=== PATIENT | female | born 1990 | race Caucasian/White ===

== ENCOUNTER 2023-12-18 22:50 | Emergency (ER) | payer BC, SELFPAY ==
[2023-12-18 23:00] VITALS: BP 130/80
--- NOTE | 2023-12-18 23:15 | ED.GENMED ---
History of Present Illness
General
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
Source: patient
Exam Limitations: none
Time Seen by Provider: 12/18/23 23:08
History of Present Illness
History of Present Illness:
This is a 33 year old female that comes in with c/o urinary symptoms. State that she feels like she had a UTI. States that at first she felt like she was retaining and had urgency. Then she started with blood in her urine and burning about 6:30pm.
States that she called her PCP thinking they could call something in but they did not do this. States that she then decided to just come here if she was going to be up all night. States that her abd does hurt. Denies any fever, chills, chest pain,
SOB, nausea, vomiting, diarrhea, headache, dizziness.
Past History
Past History
ED Past Medical History: Other (Migraines)
ED Past Surgical History:
Social History
Tobacco: Former smoker
Alcohol: Occasional
Personal: Single
Living: with family
Review of Systems
Review of Systems
All Other Systems: ROS reviewed and negative except as documented in HPI and ROS
Constitutional: Reports no symptoms; Denies fever or chills
EENT: Reports no symptoms
Respiratory: Reports no symptoms; Denies cough or trouble breathing
Cardiac: Reports no symptoms; Denies chest pain
ABD/GI: Reports abdominal pain; Denies nausea, vomiting or diarrhea
: Reports dysuria and urgency; Denies frequency
Musculoskeletal: Reports no symptoms
Skin: Reports no symptoms
Neurological: Reports no symptoms; Denies dizzy or headache
Psychiatric: Reports no symptoms
Phy Exam
General Physical Exam
General Presentation: well appearing and no apparent distress
General age: appears stated age
General Skin: warm and dry
General Habitus: normal
General Mental: alert
General Hydration: appears well hydrated
ENT Exam
ENT Exam: TM's normal, pharynx normal and neck supple
Eye Exam
Eye Exam: EOMI
Cardiovascular Exam
Cardiovascular Exam: regular rate/rhythm, no edema, no murmur and normal peripheral pulses
Pulmonary Exam
Pulmonary Exam: lungs clear, no respiratory distress, no rales, chest non tender, no crackles, no rhonchi, no wheezing and no cough
Gastrointestinal Exam
Gastrointestinal Exam: normal bowel sounds, non tender, soft, no organomegaly, no pulsatile mass and non distended
Musculoskeletal Exam
Musculoskeletal Exam: full ROM and no edema
Skin Exam
Skin Exam: normal color, warm/dry, no rash and no petechia
Psychiatric Exam
Psychiatric Exam: normal mood/affect
Course
Orders/Labs/Results
Orders:
Orders
12/18/23 23:05
Test Result ONCE
12/18/23 23:23
HCG, Urine Qualitative Screen Urgent
Date Specimen was Collected: 12/18/23
Time Specimen was Collected: 23:05
Urinalysis Reflex To Culture Urgent
Date Specimen was Collected: 12/18/23
Time Specimen was Collected: 23:05
Urine Microscopic Reflex Cult Urgent
Urine Culture Urgent
NATHALY Source: U
Specimen Description:
Date Specimen was Collected: 12/18/23
Time Specimen was Collected: 23:05
12/19/23 00:22
Sulfamethox./Trimethoprim Ds [Bactrim Ds 800 mg/160 mg] 1 tablet PO NOW STA
Abnormal Lab Results
12/18/23
23:23
Ur Occult Blood Reflex 4+ A
(Negative)
Leukocyte Esterase Rfl 2+ A
(Negative)
Urine RBC >100 A /HPF
(0-2)
Urine WBC (Reflex) >100 A /HPF
(0-5)
Urine Bacteria (Reflex) Moderate A
(Negative)
Urine Albumin (Reflex) 1+ A
(Neg - Trace)
Vital Signs
Initial and Last Documented VS:
Initial Vital Signs
Temp Pulse Resp BP Pulse Ox
98.1 F 79 16 130/80 99
12/18/23 23:00 12/18/23 23:00 12/18/23 23:00 12/18/23 23:00 12/18/23 23:00
Last Documented Vital Signs
Temp Pulse Resp BP Pulse Ox
98.1 F 79 16 130/80 99
12/18/23 23:00 12/18/23 23:00 12/18/23 23:00 12/18/23 23:00 12/18/23 23:00
MDM/Problems Addressed
Differential Diagnosis Includes:
Urinary tract infection.
MDM/Problems Addressed:
This is a 33 year old female that comes in with c/o urinary symptoms. States that at first she felt she was retaining and then she started with urinary burning and blood in her urine. States that she felt if she was going to be up all night she
would just come here.
Will get urine and bladder scan after voiding to check for any residual.
Back into see patient. Explained that she does have a UTI. Will start patient on antibiotics at this time and also give Pyridium to help with spasm. Will have patient increase her water intake to 8-8oz glasses daily. Return with any concerns.
Chronic conditions affecting care:
NA
Acute Exacerbation and/or Progression of Chronic Illness:
NA
*Pulse Oximetry
Patient hypoxic: no
*EKG
Interpreted by ED Provider?: NA
Rate: EKG- N/A
*Economic Specialist Interpretation
Rate: Economic Specialist- N/A
*Critical Care Note
Total Time (30-74mins, 75-104mins- exclusive of procedures): Not Applicable
ED Attending Note
-
Portions of this chart may have been created with voice recognition software.� Occasional wrong word or��sound alike� substitutions may have occurred due to the inherent limitations of voice recognition software.
Discharge Plan
Departure
Patient Disposition: Home (Routine Discharge)
Date of Disposition: 12/19/23
Time of Disposition: 00:24
Patient with high blood pressure during this ER visit?: Yes
Condition: Good
Covid-19: Not Applicable
Discharge Problem:
Urinary tract infection
Instructions: Urinary Tract Infection, Adult (DC), BLOOD PRESSURE
Prescriptions:
New
sulfamethoxazole-trimethoprim [Bactrim DS] 800-160 mg tablet
1 tab PO BID Qty: 13 0RF
No Action
Vitamin
1 tab PO DAILY
Referrals:
Michaela Nichols PA [Family Provider] - Call in 1-3 days for appt
Activity Restrictions/Additional Instructions:
As discussed, you do have a urinary tract infection. You have been given your first dose of antibiotic here. You have also been given Pyridium to help with the spasm. This will turn your urine orange. Please increase your water intake to 8-8oz
glasses daily. Follow up with the family doctor for recheck after you have completed the antibiotics. IF YOU HAVE FEVER, OR YOU HAVE ANY OTHER CONCERNS PLEASE RETURN TO THE EMERGENCY ROOM.
Interventions
Interventions:
*Risk Screen - Suicide Last Done: 12/18/23 23:00
*General Assessment Last Done: 12/19/23 00:20
*Neglect/Abuse Screening Last Done: 12/18/23 23:00
*ED COVID-19 Vaccine History Last Done: 12/18/23 23:00
ED-Female Genitourinary Assessment Last Done: 12/19/23 00:19
Discharge Date and Time
Print Language: MALAYSIAN
[2023-12-18 23:30] LABS: Urine Albumin 1+ (Neg - Trace); Urine Bilirubin Negative (Negative); Urine Character Slightly Cloudy (Clear); Urine Color Yellow; Urine Glucose Negative (Negative); Urine Ketone Negative (Negative); Urine Leukocyte 2+ (Negative); Urine Nitrite Negative (Negative); Urine Occult Blood 4+ (Negative); Urine Urobilinogen Negative (Neg - 1+)
[2023-12-18 23:34] LABS: HCG, Urine Qualitative Screen Negative
[2023-12-19 00:20] LABS: Urine Red Blood Cell >100 /HPF (0-2); Urine Squamous Cell >30 /LPF (Few); Urine White Cell >100 /HPF (0-5)
[2023-12-19 00:21] LABS: Urine Bacteria Moderate (Negative)
[2023-12-19] MEDS: Pyridium 200 MG PO (00:48)
[2023-12-19] MEDS: BACTRIM DS 800 MG/160 MG 1 TABLET PO (00:48)
== END 2023-12-19 00:48 | disposition home or self-care (01) ==
LOC: EMR 22:50
PROVIDERS: EMERGENCY PHYSICIAN Emergency Medicine; FAMILY PHYSICIAN Physician Assistant
DX: N39.0 Urinary tract infection, site not specified (principal); Z87.891 Personal history of nicotine dependence
CPT/HCPCS: 99283; 81003; 81015; 81025; 87077; 87086

== ENCOUNTER → 2024-05-21 12:44 | Outpatient (REF) | payer OTHER, SELFPAY | LOC: RAD 12:44 | PROVIDERS: ATTENDING PHYSICIAN Obstetrics & Gynecology; FAMILY PHYSICIAN Physician Assistant | DX: N97.9 Female infertility, unspecified (principal) | CPT/HCPCS: 58340; 74740 ==

== ENCOUNTER → 2024-07-11 09:22 | Outpatient (REF) | payer OTHER, SELFPAY | LOC: HWRAD 09:22 | PROVIDERS: ATTENDING PHYSICIAN Nurse Practitioner Family; FAMILY PHYSICIAN Physician Assistant | DX: Z34.90 Encounter for supervision of normal pregnancy, unspecified, unspecified trimester (principal) | CPT/HCPCS: 76801; 76817 ==

== ENCOUNTER → 2024-08-27 07:18 | Outpatient (REF) | payer OTHER, SELFPAY | LOC: PNTC 07:18 | PROVIDERS: ATTENDING PHYSICIAN Obstetrics & Gynecology | DX: Z36.0 Encounter for antenatal screening for chromosomal anomalies (principal); Z36.82 Encounter for antenatal screening for nuchal translucency | CPT/HCPCS: 76801; 76813 ==

== ENCOUNTER → 2024-09-18 16:42 | Outpatient (REF) | payer OTHER, SELFPAY | LOC: PNTC 16:42 | PROVIDERS: ATTENDING PHYSICIAN Obstetrics & Gynecology | DX: O09.522 Supervision of elderly multigravida, second trimester (principal); O99.212 Obesity complicating pregnancy, second trimester | CPT/HCPCS: 76805 ==

== ENCOUNTER → 2024-10-16 13:24 | Outpatient (REF) | payer OTHER, SELFPAY | LOC: PNTC 13:24 | PROVIDERS: ATTENDING PHYSICIAN Obstetrics & Gynecology | DX: O09.522 Supervision of elderly multigravida, second trimester (principal); O99.212 Obesity complicating pregnancy, second trimester; Z36.86 Encounter for antenatal screening for cervical length | CPT/HCPCS: 76811; 76817 ==

== ENCOUNTER → 2024-11-26 10:53 | Outpatient (REF) | payer OTHER, SELFPAY | LOC: PNTC 10:53 | PROVIDERS: ATTENDING PHYSICIAN Obstetrics & Gynecology | DX: O99.210 Obesity complicating pregnancy, unspecified trimester (principal); O09.529 Supervision of elderly multigravida, unspecified trimester | CPT/HCPCS: 76816 ==

== ENCOUNTER → 2024-12-17 15:34 | Outpatient (REF) | payer OTHER, SELFPAY ==
--- NOTE | 2024-12-17 14:49 | PN.DIAED06 ---
Meal Plan - Gestational
- Breakfast
Gestational Diabetes Meal Plan Name: 1800 calories
Breakfast - Total Carbohydrate (grams): 30 (1 serving carb = 15 grams)
Breakfast - Starch Carbohydrate: 1 (carbs = starch, fruit, milk)
Breakfast - Fruit Carbohydrate: 0 (no fruit or juice before noon)
Breakfast - Milk Carbohydrate: 1
Breakfast - Nonstarchy Vegetables: Yes
Breakfast - Meat/Protein: 1 (1 serving protein = 1 oz/7 g)
Breakfast - Fat: 2 (1 serving fat = 5 g)
- Morning Snack
Morning Snack - Total Carbohydrate (grams): 30
Morning Snack - Starch Carbohydrate: 1
Morning Snack - Fruit Carbohydrate: 0 (no fruit or juice before noon)
Morning Snack - Milk Carbohydrate: 1
Morning Snack - Nonstarchy Vegetables: Yes
Morning Snack - Meat/Protein: 0.5
Morning Snack - Fat: 0
- Lunch
Lunch - Total Carbohydrate (grams): 45
Lunch - Starch Carbohydrate: 2
Lunch - Fruit Carbohydrate: 1
Lunch - Milk Carbohydrate: 0
Lunch - Nonstarchy Vegetables: Yes
Lunch - Meat/Protein: 2
Lunch - Fat: 1
- Afternoon Snack
Afternoon Snack - Total Carbohydrate (grams): 30
Afternoon Snack - Starch Carbohydrate: 1
Afternoon Snack - Fruit Carbohydrate: 1
Afternoon Snack - Milk Carbohydrate: 0
Afternoon Snack - Nonstarchy Vegetables: Yes
Afternoon Snack - Meat/Protein: 1
Afternoon Snack - Fat: 0
- Dinner
Dinner - Total Carbohydrate (grams): 45
Dinner - Starch Carbohydrate: 2
Dinner - Fruit Carbohydrate: 0
Dinner - Milk Carbohydrate: 1
Dinner - Nonstarchy Vegetables: Yes
Dinner - Meat/Protein: 2
Dinner - Fat: 2
- Evening Snack
Evening Snack - Total Carbohydrate (grams): 30
Evening Snack - Starch Carbohydrate: 1
Evening Snack - Fruit Carbohydrate: 0
Evening Snack - Milk Carbohydrate: 1
Evening Snack - Nonstarchy Vegetables: Yes
Evening Snack - Meat/Protein: 1
Evening Snack - Fat: 1
--- NOTE | 2024-12-18 15:25 | PN.DE ---
Diabetes Education
- -
12/18/2024 GESTATIONAL DIABETES CONSULT
Met with patient today for medical nutrition therapy. G2, P1, with an PHIL of 03/03/2025
Explained glucose metabolism in body and what occurs during to cause increase blood sugar. Discussed importance of keeping BS well controlled to avoid complications to the baby during and after (macrosomia, hypoglycemia).
Discussed macronutrients, provided with 1800 joan GDM meal plan.
Discussed physical activity and importance in lowering glucose values. She walks daily and prior to was lifting weights.
She presented to the appointment with Contour Next test strips, states additional supplies are backordered. I provided her with a Contour Next glucometer and lancets . Reviewed proper testing technique, testing sites and testing pattern. She is
aware to test FBS and 2 hr pp each meal. Expected results for FBS <95 mg/dl and 2 hr pp <120 mg/dl. Noted for blood sugar of 120mg/dl 1 hr after breakfast this morning. Log sheet provided for her to record results, she will send a 4-day meal log
with all her FBG and 2hr Post prandial glucose numbers to this office for review. In addition, [facility]
She was encouraged to reach out should she require insulin.
--- NOTE | 2024-12-19 14:35 | PN.DE ---
Diabetes Education
- -
12/19/2024 GESTATIONAL DIABETES EDUCATION
Spoke with Courtney, yesterday her AM BS was 91 after a glass of water and this morning her fasting BS was 90. Her PM snack was 1 rice cake wtih 1 TBSP PB and 1 cup milk. Dher 2 hour postprandial blood sugars are 97, 105, and 112 mg/dL. During the
conversation, we clarified the following: check BS 2 hours after the start of a meal, ideal spacing is 2-3 hours between snacks and meals; hummus and non fat yogurt are a carb and protein; nut butter is a protein and a fat; margot seeds (2 TBSP) are
fats, proteins, and carbs and read the label for macronutrient content. She also asked about sweets at abirthday dinner, I advised eating a protein first, small portions, and make this a rare occasion and to notate blood sugar log to [facility] .
== END ==
LOC: DES 15:34
PROVIDERS: ATTENDING PHYSICIAN Obstetrics & Gynecology
DX: O24.419 Gestational diabetes mellitus in pregnancy, unspecified control (principal)
CPT/HCPCS: 99078

== ENCOUNTER → 2025-01-04 09:14 | Outpatient (REF) | payer OTHER, SELFPAY ==
--- NOTE | 2025-01-04 11:09 | PN.DE ---
Diabetes Education
- -
01/04/2025 GESTATIONAL DIABETES EDUCATION
Norma presented to the office with Humulin N KwikPen and pen needles, is prescribed 6 units HS by Suman Maldonado. I educated and demonstrated on NPH insulin injection technique, importance of rotating sites, timing QD HS, and storage. She
provided successful repeat demonstration, will contact the office with additional questions.
== END ==
LOC: DES 09:14
PROVIDERS: ATTENDING PHYSICIAN Obstetrics & Gynecology
DX: O24.419 Gestational diabetes mellitus in pregnancy, unspecified control (principal)
CPT/HCPCS: 99078

== ENCOUNTER → 2025-01-14 08:31 | Outpatient (REF) | payer OTHER, SELFPAY | LOC: PNTC 08:31 | PROVIDERS: ATTENDING PHYSICIAN Obstetrics & Gynecology | DX: O99.213 Obesity complicating pregnancy, third trimester (principal); O24.414 Gestational diabetes mellitus in pregnancy, insulin controlled; O09.523 Supervision of elderly multigravida, third trimester | CPT/HCPCS: 59025; 76816 ==

== ENCOUNTER → 2025-01-21 07:29 | Outpatient (REF) | payer OTHER, SELFPAY | LOC: PNTC 07:29 | PROVIDERS: ATTENDING PHYSICIAN Obstetrics & Gynecology | DX: O09.523 Supervision of elderly multigravida, third trimester (principal); O99.213 Obesity complicating pregnancy, third trimester; O24.414 Gestational diabetes mellitus in pregnancy, insulin controlled | CPT/HCPCS: 59025; 76815 ==

== ENCOUNTER → 2025-01-28 07:27 | Outpatient (REF) | payer OTHER, SELFPAY | LOC: PNTC 07:27 | PROVIDERS: ATTENDING PHYSICIAN Obstetrics & Gynecology | DX: O09.523 Supervision of elderly multigravida, third trimester (principal); O99.213 Obesity complicating pregnancy, third trimester; O24.414 Gestational diabetes mellitus in pregnancy, insulin controlled | CPT/HCPCS: 59025; 76815 ==

== ENCOUNTER → 2025-02-04 08:16 | Outpatient (REF) | payer OTHER, SELFPAY | LOC: PNTC 08:16 | PROVIDERS: ATTENDING PHYSICIAN Obstetrics & Gynecology | DX: O09.523 Supervision of elderly multigravida, third trimester (principal); O99.213 Obesity complicating pregnancy, third trimester; O24.414 Gestational diabetes mellitus in pregnancy, insulin controlled | CPT/HCPCS: 59025; 76815 ==

== ENCOUNTER → 2025-02-11 15:19 | Outpatient (REF) | payer OTHER, SELFPAY | LOC: PNTC 15:19 | PROVIDERS: ATTENDING PHYSICIAN Obstetrics & Gynecology | DX: O09.523 Supervision of elderly multigravida, third trimester (principal) | CPT/HCPCS: 59025 ==